=== PATIENT | female | born 1985 | race Asian ===

== ENCOUNTER 2022-08-25 19:11 | Emergency (ER) | payer MEDICAID ==
[~2022-08-25] VITALS: Ht 157.5 cm; Wt 59.0 kg
[2022-08-25 19:16] VITALS: BP 133/80
[2022-08-26] MEDS ORDERED: GABA300C MT (02:15)
[2022-08-26] MEDS ORDERED: ACETAMINOPHEN 500MG TABLET PO ONE (04:45)
== END 2022-08-26 05:07 | disposition home or self-care (01) ==
LOC: ER 19:11
DX: R51.9 Headache, unspecified (principal); J45.909 Unspecified asthma, uncomplicated; Z88.0 Allergy status to penicillin
CPT/HCPCS: 99284